=== PATIENT | female | born 1985 ===

== ENCOUNTER 2018-08-03 15:50 | Inpatient (IN) | payer SELFPAY ==
[~2018-08-03] VITALS: Ht 170.2 cm; Wt 90.7 kg
[2018-08-03] MEDS ORDERED: LACT. RINGERS/OXYTOCIN 20UNITS 1,000 ML IV ONE (15:59)
[2018-08-03] MEDS ORDERED: METHYLERGONOVINE MALEATE 0.2 MG/ML AMP IM ONE (15:59)
[2018-08-03] MEDS ORDERED: LACT. RINGERS/OXYTOCIN 20UNITS 1,000 ML IV SCH (16:03)
[2018-08-03] MEDS: LACTATED RINGER'S 1,000 ML IV SCH (16:05)
[2018-08-03] MEDS ORDERED: PENICILLIN G POT 5MIL/D5 50ML 50 ML IV ONE (16:15)
[2018-08-03] MEDS ORDERED: DERMOPLAST 60ML BOTTLE TOP PRN (16:15)
[2018-08-03] MEDS ORDERED: CARBOPROST TROMETHAMINE 250 MCG/1ML VIAL IM PRN (16:15)
[2018-08-03] MEDS ORDERED: METHYLERGONOVINE MALEATE 0.2 MG/ML AMP IM PRN (16:15)
[2018-08-03] MEDS ORDERED: LIDOCAINE 2%HCL (LOCAL ANESTH.) INJ 20ML MDV ID ONE (16:15)
[2018-08-03] MEDS ORDERED: PHISODERM TOP SOLN 240ML BTL TOP PRN (16:15)
[2018-08-03] MEDS ORDERED: WITCH HAZEL-GLYCERIN PAD TOP PRN (16:15)
[2018-08-03 16:41] LABS: Basophils # (auto) 0.1 uL; Basophils % (auto) 0.7 % (0.0-2.0); Eosinophils # (auto) 0.1 uL; Eosinophils % (auto) 0.8 % (0.0-7.0); Hematocrit 32.7 % (36.0-46.0); Hemoglobin 11.1 g/dL (12.2-16.2); Lymphocytes # (auto) 2.4 uL; Lymphocytes % (auto) 13.4 % (10.0-50.0); Mean Corpuscular Hemoglobin 28.8 pg (28.0-32.0); Mean Corpuscular Hgb Conc. 33.9 g/dL (32.0-36.0); Monocytes # (auto) 0.9 uL; Monocytes % (auto) 4.9 % (0.0-12.0); Neutrophils # (auto) 14.5 uL; Neutrophils % (auto) 80.2 % (37.0-80.0); Platelet Count (auto) 267 10^3/uL (140-450); Red Blood Cells 3.85 10^6/uL (4.0-5.20); Red Cell Distribution Width 15.5 % (11.8-14.3); White Blood Cell 18.1 10^3/uL (4.4-10.8)
[2018-08-03 16:53] LABS: INR 0.93 (0.9-1.15); Partial Thromboplastin Time 24.7 sec (23.78-33.04)
[2018-08-03 16:54] LABS: Alanine Aminotransferase 14 U/L (13-56); Albumin 2.3 g/dL (3.4-5.0); Anion Gap 9 (5-15); Aspartate Aminotransferase 13 U/L (15-37); Blood Urea Nitrogen 9 mg/dL (7-18); Calcium 8.4 mg/dL (8.5-10.1); Carbon Dioxide 22 mmol/L (21-32); Chloride 108 mmol/L (98-107); GFR African American 270 mL/min; GFR Non-African American 223 mL/min; Glucose 83 mg/dL (74-106); Potassium 3.8 mmol/L (3.5-5.1); Sodium 139 mmol/L (136-145)
[2018-08-03] MEDS ORDERED: PREN-96 PO (16:54)
[2018-08-03 16:55] LABS: Alkaline Phosphatase 123 U/L (45-117); Bilirubin, Total < 0.1 mg/dL (0.2-1.0); Total Protein 6.6 g/dL (6.4-8.2)
[2018-08-03 16:58] LABS: Alcohol, Urine < 3.0 mg/dL (0-5); Amphetamine Screen, Urine POSITIVE (NEGATIVE); Barbiturate Scree,Urine NEGATIVE (NEGATIVE); Benzodiazephine Screen, Urine NEGATIVE (NEGATIVE); Cannabinoid Screen, Urine NEGATIVE (NEGATIVE); Cocaine Screen, Urine NEGATIVE (NEGATIVE); Opiate Scree,Urine NEGATIVE (NEGATIVE); Phencyclidine Screen, Urine NEGATIVE (NEGATIVE)
[2018-08-03 17:12] LABS: Urine Bacteria NONE SEEN /hpf (None Seen); Urine Blood 2+ /uL (Negative); Urine Mucus FEW (None Seen); Urine Specific Gravity 1.019 (1.001-1.035); Urine WBC 1 /hpf (0 - 5)
[2018-08-03] MEDS: ceFAZolin 1GM/50ML 50 ML IV SCH (17:26)
[2018-08-03 19:17] VITALS: BP 113/69
--- NOTE | 2018-08-03 19:20 | NUR ---
Ambulation: Patient OOB with standby assistance by RN. Patient ambulated to bathroom with steady gait. Patient able to void without difficulty. [facility] teaching provided with returned demonstration by patient. Clean gown provided and bed linen changed. Patient ambulated back to bed with steady gait and no distress noted.
[2018-08-03] MEDS ORDERED: ACETAMINOPHEN 325 MG TAB PO PRN (22:15)
[2018-08-03] MEDS: IBUPROFEN 600 MG TAB PO PRN (23:20)
[2018-08-03 23:26] VITALS: BP 110/59
[2018-08-04] MEDS: LACTATED RINGER'S 1,000 ML IV SCH (00:03)
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
[2018-08-04] MEDS: ceFAZolin 1GM/50ML 50 ML IV SCH ×2 (00:49→08:54)
[2018-08-04 03:05] VITALS: BP 97/54
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
[2018-08-04 07:30] VITALS: BP 106/51
--- NOTE | 2018-08-04 08:15 | NUR ---
[facility] SOFTWARE ENGINEERING SPECIALIST PRACTITIONER AT PT BEDSIDE TALKING WITH PATIENT. PER LUIS, SHE WILL BE IN CONTACT WITH THE [facility] ON THE PLAN OF ACTION ONCE SHE HAS A HOME VISIT WITH PATIENTS SPOUSE [employer]ORGAN. AWAITING CALL BACK. BUSINESS CARS PLACED IN PTS CHART.
[2018-08-04 11:00] VITALS: BP 122/59
[2018-08-04] MEDS: IBUPROFEN 600 MG TAB PO PRN (13:41)
[2018-08-04 15:00] VITALS: BP 101/55
--- NOTE | 2018-08-04 16:03 | NUR ---
[facility] RECEIVED CALL FROM [facility] CUSTOMER CARE TEAM COACH PRACTITIONER. LUIS STATED THEY ARE PLACING HOLD ON INFANT AND THEY WILL ARRIVE THE [facility] WITHIN THE HOUR. LUIS ALSO STATED THAT THE MOTHER CAN HAVE SUPERVISED VISITS WITH THE INFANT IN NURSERY. AWAITING ARRIVAL. LUIS STATED SHE WILL BE FAXING OVER THE [facility] INFORMATION LETTER. AWAITING FAX.
--- NOTE | 2018-08-04 16:25 | NUR ---
FAX RECEIVED. HALFWAY LETTER PLACED IN PATIENTS CHART.
--- NOTE | 2018-08-04 18:20 | NUR ---
Discharge: Discharge instructions given as ordered. Pt encouraged to follow up with [facility] as instructed within 1 week of DC. All questions and concerns addressed. Patient verbalized understanding. Medication reconciliation completed and copy given to patient, along with copy of post depression screening. Patient encouraged to prepare to depart unit and states that FOB will report to unit in "a few minutes" to pick her up. Addendum: 08/04/18 at 2010 by VIVIANE SIMENTAL RN RN TIME CORRECTION: ODER FOR DC RECEIVED VIA TELEPHONE AT [phone] SEQUEIRA, DC INSTRUCTIONS PROVIDED AT 1882.
--- NOTE | 2018-08-04 18:28 | NUR ---
PT REPORT GIVEN TO Sylvie ACOSTA RN ON STABLE PATIENT. NO S/S OF DISTRESS OR SOB NOTED, RELINQUISHED CARE.
[2018-08-04 18:35] VITALS: BP 105/59
--- NOTE | 2018-08-04 18:50 | NUR ---
IV removal IV DC'd with clean technique, catheter fully intact. Pressure dressing applied to site. Patient has no complaints at time of removal, no adverse symptoms noted at site. Discharged with aftercare instructions per MD. NOTE:
--- NOTE | 2018-08-04 19:20 | NUR ---
Discharge: Patient ambulated to personal vehicle with all personal belongings, accompanied by father of baby. No distress noted at time of departure, no adverse changes in status since initial assessment.
== END 2018-08-04 19:20 | disposition home or self-care (01) | DRG 807 ==
LOC: LDRP 15:50
PROVIDERS: ADMIT Obstetrics & Gynecology; ATTEND Obstetrics & Gynecology
PROC: 10E0XZZ Delivery of Products of Conception, External Approach (ICD-10-PCS; principal; 2018-08-03)
PROC: 0HQ9XZZ Repair Perineum Skin, External Approach (ICD-10-PCS; 2018-08-03)
DX: O70.0 First degree perineal laceration during delivery (principal); Z37.0 Single live birth; O71.82 Other specified trauma to perineum and vulva; Z3A.39 39 weeks gestation of pregnancy
CPT/HCPCS: 36415; 59025; 59409; 76805; 80053; 80307; 81001; 85025; 85610; 85730; 86592; 86703; 86762; 86850; 86900; 86901; 87340; 96365; 96366; G0378; J0690; J2590